=== PATIENT | female | born 1975 | race Caucasian/White ===

== ENCOUNTER → 2018-08-12 19:32 | Outpatient (CLI) | payer OTHER, SELFPAY ==
--- NOTE | 2018-08-12 19:34 | DI.MRI.S_ITS ---
PROCEDURE: MR LUMBAR SPINE WO CON INDICATIONS: INTERVERTEBRAL DISC DISORDER WITH RADICULOPATHY TECHNIQUE: Noncontrast sagittal T1 spin echo and T2 fast echo, sagittal STIR, axial T1 and T2 fast spin echo through the lumbar spine. In cases with scoliosis, additional coronal T2 fast spin echo may be performed. COMPARISON: [facility] [place], CR, XR LUMBAR SPINE 2 OR 3 VIEWS, 08/07/2018, 10:52. [facility] [place], MR, MR LUMBAR SPINE WO CON, 02/02/2016, 9:42. FINDINGS: Image quality: Excellent. Alignment and Curvature: There is normal bony alignment. Bone Marrow: Marrow is of normal overall signal. No acute vertebral body compression fractures. Spinal Cord: Conus medullaris terminates at the L1 level. Visualized cord demonstrates normal signal and size. Paraspinous Soft Tissues: No paravertebral masses. T12-L1: Normal appearance. L1-L2: Normal appearance. L2-L3: Normal appearance. L3-L4: No significant abnormality is seen. L4-L5: Moderate loss of disc height is seen. Loss of disc signal is seen. Reactive marrow endplate changes are seen, which are hypointense on T1-weighted imaging and hyperintense on T2 weighted imaging, which is most consistent with edema (Modic type I changes). Moderate generalized disc bulge is seen. Moderate facet joint hypertrophy is seen. There is mild left-sided and no right-sided neural foraminal narrowing seen. No significant central canal narrowing is seen. When compared to the 2016 examination, the degree of left-sided neural foraminal narrowing appears less severe, yet this may simply be secondary to differences in scanning technique. The degree of endplate edema is overall improved since the prior study. L5-S1: Moderate loss of disc height is seen. Loss of disc signal is seen. [id number] facet hypertrophy is seen. No significant neural foraminal or central canal narrowing are seen. IMPRESSION: Focal lower lumbar spine degenerative changes are seen, with slight interval improvement at the L4-L5 level compared to 2016. Dictated by: Jose Tan M.D. on 08/13/2018 at 7:57 Approved by: Jose Tan M.D. on 08/13/2018 at 8:01
== END ==
PROVIDERS: Family Provider Obstetrics & Gynecology; Visit Provider Orthopaedic Surgery Orthopaedic Surgery of the Spine
DX: M51.16 Intervertebral disc disorders with radiculopathy, lumbar region (principal)
CPT/HCPCS: 72148